=== PATIENT | male | born 1990 | race Hispanic/Latino ===

== ENCOUNTER 2018-08-03 09:54 | Emergency (ER) | payer OTHER ==
[2018-08-03 10:07] VITALS: BMI 26.8
[2018-08-03] MEDS ORDERED: Sodium Chloride 0.9% 1,000 ML IV STA (10:40)
--- NOTE | 2018-08-03 10:49 | ED PDOC ---
HPI: Abdomen Time Seen by Provider: 08/03/18 10:24 Chief Complaint (Nursing): Abdominal Pain Chief Complaint (Provider): Abdominal pain History Per: Patient History/Exam Limitations: no limitations Outside of [place] travel?: Yes Other Location:: Lives in Additional Complaint(s): Pt 3 weeks s/p uncomplicated laparoscopic appendectomy presents with RLQ pain X 4 days, intermittent, worse with ambulation, sometimes with "rebound" tenderness. Denies fever, nausea, vomiting, constipation, diarrhea, urinary symptoms. Pt last took Tylenol and Ibuprofen 2 days ago. States he does not need pain medication at this time. Past Medical History Reviewed: Nursing Documentation, Vital Signs Vital Signs: Last Vital Signs Temp 98.4 F 08/03/18 10:06 Pulse 76 08/03/18 10:06 Resp 20 08/03/18 10:06 BP 133/80 08/03/18 10:06 Pulse Ox 98 08/03/18 10:06 - Medical History PMH: No Chronic Diseases - Surgical History Surgical History: Appendectomy - Family History Family History: States: Unknown Family Hx - Living Arrangements Living Arrangements: With Family - Social History Current smoker - smoking cessation education provided: No Alcohol: None - Home Medications Home Medications: Ambulatory Orders Medication Instructions Recorded Naproxen [Naprosyn] 500 mg PO BID PRN #15 tablet 08/03/18 - Allergies Allergies/Adverse Reactions: Allergies Allergy/AdvReac Type Severity Reaction Status Date / Time No Known Allergies Allergy Verified 08/03/18 10:25 Review of Systems Constitutional: Negative for: Fever, Chills Respiratory: Negative for: Cough Gastrointestinal: Positive for: Abdominal Pain. Negative for: Nausea, Vomiting, Diarrhea Genitourinary Male: Negative for: Dysuria, Hematuria Skin: Negative for: Rash, Lesions Neurological: Negative for: Headache Physical Exam - Reviewed Nursing Documentation Reviewed: Yes Vital Signs Reviewed: Yes - Physical Exam Appears: Positive for: Well, No Acute Distress Skin: Positive for: Normal Color, Warm, Dry Eye Exam: Positive for: Normal appearance, EOMI, PERRL Cardiovascular/Chest: Positive for: Regular Rate, Rhythm Respiratory: Positive for: Normal Breath Sounds Gastrointestinal/Abdominal: Positive for: Bowel Sounds, Soft, Tenderness (Mild RLQ). Negative for: Guarding, Rebound Back: Positive for: Normal Inspection Neurologic/Psych: Positive for: Alert, Oriented - Laboratory Results Result Diagrams: 08/03/18 11:09 08/03/18 11:09 - ECG O2 Sat by Pulse Oximetry: 98 Medical Decision Making Medical Decision Makin yo male with RLQ pain 3 weeks s/p appendectomy. - labs - CT abd/pelvis - IVF Disposition - Clinical Impression Clinical Impression: Abdominal pain - Disposition Disposition: Routine/Home Disposition Time: 14:15 Condition: STABLE Additional Instructions: FOLLOW-UP WITH YOUR SURGEON SOON POSSIBLE. Prescriptions: Naproxen [Naprosyn] 500 mg PO BID PRN #15 tablet PRN Reason: Pain, Moderate (4-7) Instructions: Acute Abdomen (Belly Pain) Forms: [email or web address] (I[place]ic)
[2018-08-03 11:17] LABS: LYMPH % 43.2 % (20.0-40.0); MEAN CELL VOLUME 87.7 fl (80.0-94.0); MEAN CORPUSCULAR HEMOGLOBIN 30.6 pg (27.0-31.0); MEAN CORPUSCULAR HGB CONC 34.9 g/dL (33.0-37.0); MEAN PLATELET VOLUME 9.1 fl (7.2-11.7); NEUT % 39.1 % (50.0-75.0); RBC 4.89 Mil/uL (4.40-5.90); RED CELL DISTRIBUTION WIDTH 12.4 % (11.5-14.5); WHITE BLOOD COUNT 5.2 K/uL (4.8-10.8)
[2018-08-03 11:18] LABS: BASO % 0.9 % (0.0-2.0); EOS # 0.2 K/uL (0.0-0.7); EOS % 4.5 % (0.0-4.0); LYMPH # 2.3 K/uL (1.0-4.3); MONO # 0.6 K/uL (0.0-0.8); MONO % 12.3 % (0.0-10.0); NRBC % 0.1 % (0.0-0.0)
[2018-08-03 11:24] LABS: PROTHROMBIN TIME 11.2 Seconds (9.8-13.1)
[2018-08-03 11:28] LABS: BLOOD UREA NITROGEN 13 mg/dl (9-20); CALCIUM 9.7 mg/dL (8.4-10.2); GFR NON-AFRICAN AMERICAN > 60
[2018-08-03 11:31] LABS: URINE BILIRUBIN NEGATIVE (NEGATIVE); URINE BLOOD NEGATIVE (NEGATIVE); URINE CLARITY CLEAR (Clear); URINE COLOR YELLOW (YELLOW); URINE GLUCOSE (UA) NEG (Normal); URINE LEUKOCYTE ESTERASE NEG Leu/uL (Negative); URINE PROTEIN NEGATIVE (NEGATIVE); URINE UROBILINOGEN 0.2-1.0 mg/dL (0.2-1.0)
[2018-08-03 11:33] LABS: ALB/GLOB RATIO 1.3 (1.0-2.1); ALBUMIN 4.8 g/dL (3.5-5.0); ALT/SGPT 33 U/L (21-72); AST/SGOT 54 U/L (17-59)
[2018-08-03] MEDS ORDERED: Iohexol 300 100 ML IJ ONE (12:14)
[2018-08-03] MEDS ORDERED: Sodium Chloride 0.9% 50 ML IV ONE (12:14)
--- NOTE | 2018-08-03 13:26 | CT ---
Date of service: 08/03/2018 PROCEDURE: CT Abdomen and Pelvis with contrast HISTORY: RLQ pain, 3 weeks s/p lap jim COMPARISON: None. TECHNIQUE: Contrast dose: 95 mL Omnipaque 300 Radiation dose: Total exam DLP = 400.8 mGy-cm. This CT exam was performed using one or more of the following dose reduction techniques: Automated exposure control, adjustment of the mA and/or kV according to patient size, and/or use of iterative reconstruction technique. FINDINGS: LOWER THORAX: Unremarkable. LIVER: Mild hepatic steatosis. No gross lesion or ductal dilatation. GALLBLADDER AND BILE DUCTS: Unremarkable. PANCREAS: Unremarkable. No gross lesion or ductal dilatation. SPLEEN: Unremarkable. ADRENALS: Unremarkable. No mass. KIDNEYS AND URETERS: Unremarkable. No hydronephrosis. No solid mass. VASCULATURE: Unremarkable. No aortic aneurysm. BOWEL: Unremarkable. No obstruction. No gross mural thickening. APPENDIX: Prior appendectomy. PERITONEUM: Unremarkable. No free fluid. No free air. LYMPH NODES: Unremarkable. No enlarged lymph nodes. BLADDER: Unremarkable. REPRODUCTIVE: Unremarkable. BONES: No acute fracture. OTHER FINDINGS: None. IMPRESSION: No acute abdominal pelvic pathology. No evidence of right lower quadrant abscess.
[2018-08-03 14:47] VITALS: BP 129/79; PULSE 68; RESP 17; TEMP 98.7
[2018-08-24 10:52] VITALS: O2SAT 98
== END 2018-08-03 14:48 | disposition home or self-care (01) ==
LOC: H.ER 09:54
DX: R10.9 Unspecified abdominal pain (principal)
CPT/HCPCS: 74177; 80053; 81003; 85025; 85610; 85730; 99284; J7030; Q9967